=== PATIENT | female | born 1955 | race Caucasian/White ===

== ENCOUNTER 2019-03-19 23:12 | Emergency (ER) | payer MEDICARE ==
[~2019-03-19] VITALS: Ht 162.6 cm; Wt 59.0 kg
[~2019-03-19 23:12] MED LIST: Bactrim Ds Tab1 EACH PO; CEPH500 PO; HYDR1TAB94 PO; Keflex500 MG PO; OMEP20ER PO; PREG50 PO
== END 2019-03-20 00:11 | disposition home or self-care (01) ==
LOC: ER 23:12
DX: M25.542 Pain in joints of left hand (principal); F17.200 Nicotine dependence, unspecified, uncomplicated; Z88.0 Allergy status to penicillin; Z88.8 Allergy status to other drugs, medicaments and biological substances
CPT/HCPCS: 99283

== ENCOUNTER → 2019-05-17 | Outpatient (CLI) | payer MEDICARE | END | disposition home or self-care (01) | LOC: LAB SHORT 19:30 → LAB 19:30 | DX: R30.0 Dysuria (principal); R35.0 Frequency of micturition | CPT/HCPCS: 87086 ==

== ENCOUNTER 2022-07-11 17:38 | Emergency (ER) | payer OTHER ==
[~2022-07-11] VITALS: Ht 162.6 cm; Wt 59.0 kg
== END 2022-07-11 19:45 | disposition home or self-care (01) ==
LOC: ER 17:38
DX: M25.532 Pain in left wrist (principal); S80.212A Abrasion, left knee, initial encounter; S00.81XA Abrasion of other part of head, initial encounter; W17.89XA Other fall from one level to another, initial encounter; Z88.0 Allergy status to penicillin; Z88.8 Allergy status to other drugs, medicaments and biological substances; F17.200 Nicotine dependence, unspecified, uncomplicated
CPT/HCPCS: 73110

== ENCOUNTER 2022-08-06 03:01 | Inpatient (IN) | payer MEDICARE ==
[~2022-08-06] VITALS: Wt 62.0 kg
[2022-08-06 08:21] LABS: BASOPHILS ABSOLUTE AUTO 0.03 K/mm3 (0.00-0.23); BASOPHILS PERCENT AUTO 0 % (0-2); EOSINOPHILS PERCENT AUTO 0 % (0-6); Hematocrit 43.4 % (33.0-51.0); Hemoglobin 14.6 g/dL (11.5-16.0); IMMATURE GRAN ABSOLUTE AUTO 0.09 K/mm3 (0.00-0.10); IMMATURE GRAN PERCENT AUTO 0 % (0-1); LYMPHOCYTES ABSOLUTE AUTO 0.95 K/mm3 (0.84-5.20); LYMPHOCYTES PERCENT AUTO 5 % (21-46); MONOCYTES PERCENT AUTO 11 % (4-13); Mean Corpuscular HGB 27.9 pg (26.0-34.0); Mean Corpuscular HGB Conc 33.6 g/dL (31.5-36.5); Mean Corpuscular Volume 83 fL (80-100); Mean Platelet Volume 9.2 fL (9.1-12.4); NEUTROPHILS ABSOLUTE AUTO 17.25 K/mm3 (1.96-9.15); NEUTROPHILS PERCENT AUTO 84 % (41-73); Platelet Count 487 K/mm3 (150-400); RDW Coefficient Variation 14.1 % (11.7-14.2); RDW Standard Deviation 42.7 fL (35.1-46.3); Red Blood Cell Count 5.23 M/mm3 (3.80-5.20); White Blood Cell Count 20.52 K/mm3 (4.00-11.30)
[2022-08-06 08:43] LABS: Albumin, Blood 3.5 g/dL (3.4-5.0); Albumin/Globulin Ratio 0.6 (0.8-1.8); Bilirubin, Direct 0.2 mg/dL (0.0-0.3); Bilirubin, Indirect 0.6 mg/dL (0.1-0.7); Bilirubin, Total 0.8 mg/dL (0.1-1.0); Bun/Creatinine Ratio 21.3 (12.0-20.0); Calcium, Blood 9.8 mg/dL (8.5-10.1); Creatinine, Blood 0.75 mg/dL (0.40-1.00); Globulin, Blood 5.5 g/dL (2.2-4.0); Magnesium, Blood 1.9 mg/dL (1.6-2.4); Potassium, Blood 3.3 mmol/L (3.5-5.5)
[2022-08-06 09:54] LABS: Influenza A, PCR NEGATIVE (NEGATIVE); Influenza B, PCR NEGATIVE (NEGATIVE); Resp Syncytial Virus, PCR NEGATIVE (NEGATIVE); SARS-Cov-2 (COVID-19) PCR, MMC NEGATIVE (NEGATIVE)
[2022-08-06 14:02] LABS: Source, Urine Straight Cath
[2022-08-06 14:14] LABS: Appearance, Urine Clear (Clear); Bilirubin, Urine Neg (Neg); Blood, Urine 2+ (Neg); Color, Urine Yellow (P-Yellow); Glucose Qualitative, Urine Neg (Neg); Ketones, Urine 1+ (Neg); Leukocyte Esterase, Urine Neg (Neg); Nitrite, Urine Neg (Neg); Protein, Urine Neg (Neg); Specific Gravity, Urine 1.005 (1.003-1.022); Urobilinogen, Urine NORM (Normal)
[2022-08-06 14:27] LABS: Bacteria Few /hpf; Squamous Epithelial Cells Few /hpf (Few); White Blood Cells, Urine 0-2 /hpf (0-5)
--- NOTE | 2022-08-06 18:17 | NUR ---
SHIFT SUMMARY PT ADMITTED FROM THE ED THIS AFTERNOON AROUND 1500. SHE HAS C/O PAIN SINCE ADMITTED AND WAS MEDICATED PER THE EMAR. SHE ALSO C/O NAUSEA AND WAS MEDICATED PER THE EMAR. PT IS AOX4 BUT SOMETIMES DIFFICULT TO GET INFORMATION OUT OF. SHE HAS HAD HER VISIT AT THE BS. SHE IS INDEPENDENT IN THE ROOM. PT IS NPO. WILL REPORT TO ONCOMING NURSE.
--- NOTE | 2022-08-07 04:37 | NUR ---
ASSISTED LIVING CARE MANAGER SUMMARY PT IS ALERT AND ORIENTED COMMUNICATING APPROPRIATELY W STAFF THIS SHIFT. PTHAVING DIIFICULTY W PAIN CONTROL THIS SHIFT DESPITE Q2H MEDICATION PER EMAR SO PROVIDER CONTACTED AND ADDITIONAL PAIN MEDICATION ORDER WAS OBTAINED WHICH DID BRING THE PT SOME RELIEF. PT PLACED ON O2 MONITORING DUE TO HIGH DOSE PAIN MEDICATION ADMINISTRATIONS. O2 SATS >94% ON RM AIR. PT VOIDING SEVERAL TIMES THIS SHIFT BUT DID NOT HAVE ANY BOWEL MOVEMENTS. PT REPORTING NAUSEA THROUGHOUT THE SHIFT BUT HAD NO EMESIS. PT AWAKE MOST OF THE NIGHT DUE TO PAIN BUT IS CURRENTLY RESTING COMFORTABLY IN BED W CALL LIGHT WITHIN REACH. WILL REPORT TO ONCOMING RN.
[2022-08-07 05:20] LABS: Hematocrit 32.1 % (33.0-51.0); Hemoglobin 10.7 g/dL (11.5-16.0); Mean Corpuscular HGB 28.1 pg (26.0-34.0); Mean Corpuscular HGB Conc 33.3 g/dL (31.5-36.5); Mean Corpuscular Volume 84 fL (80-100); Mean Platelet Volume 9.3 fL (9.1-12.4); Platelet Count 298 K/mm3 (150-400); RDW Coefficient Variation 14.8 % (11.7-14.2); RDW Standard Deviation 45.5 fL (35.1-46.3); Red Blood Cell Count 3.81 M/mm3 (3.80-5.20); White Blood Cell Count 14.32 K/mm3 (4.00-11.30)
[2022-08-07 06:01] LABS: Magnesium, Blood 1.6 mg/dL (1.6-2.4)
[2022-08-07 06:08] LABS: Albumin, Blood 2.4 g/dL (3.4-5.0); Albumin/Globulin Ratio 0.6 (0.8-1.8); Bilirubin, Total 0.4 mg/dL (0.1-1.0); Bun/Creatinine Ratio 12.2 (12.0-20.0); Creatinine, Blood 0.82 mg/dL (0.40-1.00); Globulin, Blood 3.7 g/dL (2.2-4.0); Potassium, Blood 3.5 mmol/L (3.5-5.5)
[2022-08-07 06:09] LABS: Total Protein, Blood 6.1 g/dL (6.4-8.2)
[2022-08-07 13:14] LABS: Stool Occult Blood Guaiac 1 Pos (Neg)
[2022-08-07 16:34] LABS: Adenovirus F 40/41 Not Detected (NOT DETECT); Astrovirus Not Detected (NOT DETECT); Campylobacter Sp Not Detected (NOT DETECT); Cryptosporidium Not Detected (NOT DETECT); Cyclospora Cayetanensis Not Detected (NOT DETECT); E. Coli O157 Not Detected (NOT DETECT); Entamoeba Histolytica Not Detected (NOT DETECT); Enteroaggregative E. coli-EAEC Detected (NOT DETECT); Enteropathogenic E. coli-EPEC Not Detected (NOT DETECT); Enterotoxigenic E. coli-ETEC Not Detected (NOT DETECT); Giardia Lamblia Not Detected (NOT DETECT); Norovirus GI/GII Not Detected (NOT DETECT); Plesiomonas Shigelloides Not Detected (NOT DETECT); Rotavirus A Not Detected (NOT DETECT); Salmonella Sp Not Detected (NOT DETECT); Sapovirus Not Detected (NOT DETECT); Shiga Toxin-prod E. coli-STEC Not Detected (NOT DETECT); Shigella/Enteroin E. coli-EIEC Not Detected (NOT DETECT); Vibrio Cholerae Not Detected (NOT DETECT); Vibrio Sp Not Detected (NOT DETECT); Yersinia Enterocolitica Not Detected (NOT DETECT)
[2022-08-07 17:24] LABS: Hematocrit 32.6 % (33.0-51.0); Hemoglobin 10.7 g/dL (11.5-16.0)
--- NOTE | 2022-08-07 17:42 | NUR ---
SHIFT SUMMARY PT AOX4, C/O PAIN AND NAUSEA T/O. MEDICATED PER EMAR. SHE HAD A BOWEL MOVEMENT WHILE IN BED, THE STOOL WAS SENT TO LAB TO BE TESTED FOR CDIFF AND BLOOD. BLOOD CAME BACK POSITIVE AND CDIFF NEGATIVE BUT POSITIVE FOR ECOLI. THE PROVIDER WAS NOTIFIED AND STATED THAT SHE IS ALREADY ON ABX THAT CAN HELP TREAT. SHE IS CURRENTLY SLEEPING AND REMAINS NPO. WILL REPORT TO ONCOMING NURSE.
--- NOTE | 2022-08-08 04:29 | NUR ---
SHIFT SUMMARY PATIENT REPORTED ABDOMINAL PAIN EVERY FOUR HOURS. IV DILAUDID 2 MG GIVEN PER EMAR X THREE. IV ZOFRAN GIVEN FOR NAUSEA X TWO. HOSPITALIST DR ELAINE ORDERED IV REGLAN 10 MG Q6 FOR N/V PRN. AXOX 4 AND INDEPENDENT TO BR. POWERGLIDE JANE INTACT. LR INFUSING AT 150 mL/HR. PIV REMAINS INTACT. IV ABX INFUSED. NPO WITH MOUTH SWABS PROVIDED. PATIENT ABLE TO SLEEP WITH PAIN AND N/V MANAGEMENT. ON CONTINUOUS PULSE OXIMETRY STATING IN THE 90'S. CALL LIGHT IN REACH. BED IN LOWEST POSITION. WILL CONTINUE TO MONITOR UNTIL DAY SHIFT NURSE ASSUMES CARE.
[2022-08-08 04:49] LABS: Hematocrit 31.8 % (33.0-51.0); Hemoglobin 10.5 g/dL (11.5-16.0); Mean Corpuscular HGB 28.2 pg (26.0-34.0); Mean Corpuscular Volume 85 fL (80-100); Mean Platelet Volume 9.2 fL (9.1-12.4); Platelet Count 267 K/mm3 (150-400); RDW Coefficient Variation 14.6 % (11.7-14.2); RDW Standard Deviation 45.5 fL (35.1-46.3); Red Blood Cell Count 3.73 M/mm3 (3.80-5.20); White Blood Cell Count 11.49 K/mm3 (4.00-11.30)
[2022-08-08 05:06] LABS: Bun/Creatinine Ratio 12.7 (12.0-20.0); Calcium, Blood 8.2 mg/dL (8.5-10.1); Creatinine, Blood 0.79 mg/dL (0.40-1.00); Potassium, Blood 3.2 mmol/L (3.5-5.5)
--- NOTE | 2022-08-08 16:13 | NUR ---
SHIFT SUMMARY PATIENT IS ALERT AND ORIENTATED. PATIENT HAS HAD NO ACUTE EVENTS THIS SHIFT. VITAL SIGNS REVIEWED. PATIENT HAS BEEN UPGRADED TO CLEAR LIQUID DIET AND TOLERATING WELL. PATIENT HAS BEEN COMPLAINING OF NAUSEA AND PAIN, MEDICATED PER EMAR. PATIENT WAS PLACED ON 1L O2 NC FOR SOB. PATIENT HAS NOT COMPLAINED OF VOMITTING THIS SHIFT. PATIENT HAS LR CONTINUING TO INFUSE THROUGH POWERGLIDE. BED IN LOCKED AND LOWEST POSITION. CALL LIGHT IN PLACE. WILL MONITOR UNTIL SHIFT CHANGE.
--- NOTE | 2022-08-09 05:07 | NUR ---
SHIFT MOSTLY UNREMARKABLE. PT HAS DILAUDID 1-2MG IV Q 4 FOR PAIN WHICH SHE REQUESTS EVERY 4 HOURS. PAIN NOT COMPLETELY MANAGED ON DILAUDID THERAPY WITH PATIENT COMPLAINING OF PAIN BEFORE NEXT DOSE OF MEDICATION IS DUE. FLUIDS INFUSING WITHOUT DIFFICULTY. 2 LITERS O2 VIA NC. CALL LIGHT LEFT WITHIN REACH.
[2022-08-09 08:47] LABS: Hematocrit 30.6 % (33.0-51.0); Hemoglobin 10.1 g/dL (11.5-16.0)
[2022-08-09 09:08] LABS: Calcium, Blood 8.1 mg/dL (8.5-10.1); Creatinine, Blood 0.75 mg/dL (0.40-1.00); Potassium, Blood 3.5 mmol/L (3.5-5.5)
--- NOTE | 2022-08-09 17:14 | NUR ---
SHIFT SUMMARY PATIENT IS ALERT AND ORIENTED. PATIENT HAS NOT HAD ANY ACUTE EVENTS THIS SHIFT. VITAL SIGNS REVIEWED. PATIENT HAS BEEN REQUIRING Q4 PAIN MEDICATION. PATIENT HAS BEEN MEDICATED FOR NAUSEA PER EMAR. PATIENT HAS NOT COMPLAINED OF SOB THIS SHIFT. PATIENT HAS LR CURRENTLY INFUSING. ABX GIVEN PER EMAR. BED IN LOCKED AND LOWEST POSITION. CALL LIGHT IN PLACE. WILL MONITOR UNTIL SHIFT CHANGE.
--- NOTE | 2022-08-10 05:15 | NUR ---
SHIFT MOSTLY UNREMARKABLE. PATIENT'S PAIN CONTINUES TO BE TREATED PER EMAR, DILAUDID 1-2 MG IV Q 4. PATIENT CONSISTENTLY ASKS FOR PAIN MEDS WITHIN 20 MINUTES OF Q 4 INCREMENTS. DESPITE THIS, PATIENT BELIEVES HER PAIN IS VERY SLOWLY IMPROVING ON DAY SHIFT SHE WAS ABLE TO GO UP TO 6 HOURS BETWEEN PAIN MED REQUESTS. NOTHING ELSE OF NOTE ON SHIFT. CALL LIGHT LEFT WITHIN REACH.
[2022-08-10 05:20] LABS: Hematocrit 31.2 % (33.0-51.0); Hemoglobin 10.4 g/dL (11.5-16.0); Mean Corpuscular HGB 28.3 pg (26.0-34.0); Mean Corpuscular HGB Conc 33.3 g/dL (31.5-36.5); Mean Corpuscular Volume 85 fL (80-100); Mean Platelet Volume 9.8 fL (9.1-12.4); Platelet Count 267 K/mm3 (150-400); RDW Coefficient Variation 14.7 % (11.7-14.2); RDW Standard Deviation 45.8 fL (35.1-46.3); Red Blood Cell Count 3.67 M/mm3 (3.80-5.20); White Blood Cell Count 7.78 K/mm3 (4.00-11.30)
[2022-08-10 05:41] LABS: Creatinine, Blood 0.75 mg/dL (0.40-1.00); Potassium, Blood 3.6 mmol/L (3.5-5.5)
--- NOTE | 2022-08-10 15:45 | NUR ---
SHIFT SUMMARY PATIENT IS ALERT AND ORIENTED. PATIENT HAS BEEN IND THIS SHIFT. PATIENT HAS HAD NO ACUTE EVENTS THIS SHIFT. VITAL SIGNS REVIEWED. PATIENT WENT DOWN FOR ABD CT THIS AFTERNOON. PATIENT HAS BEEN MEDICATED FOR PAIN PER EMAR TWICE THIS SHIFT. PATIENT HAS BEEN MEDICATED PER EMAR FOR NAUSEA. PATIENT HAS NOT COMPLAINED OF VOMITTING OR SOB THIS SHIFT. LR INFUSING ALL SHIFT AND ABX INFUSED WITHOUT INCIDENT. BED IN LOCKED AND LOWEST POSITION. CALL LIGHT IN PLACE. WILL MONITOR UNTIL SHIFT CHANGE.
--- NOTE | 2022-08-11 04:16 | NUR ---
SHIFT MOSTLY UNREMARKABLE. PATIENT PAIN IS ADEQUATELY MANAGED AT THIS TIME ON CURRENT MEDICATION REGIMEN. PATIENT REPORTS GRADUALLY BEING ABLE TO GO LONGER AND LONGER BETWEEN PAIN MEDICATION REQUESTS. THINKS PAIN IS SLOWLY IMPROVING WITH TIME. CALL LIGHT LEFT WITHIN REACH.
--- NOTE | 2022-08-11 17:07 | NUR ---
SHIFT SUMMARY PT A&OX4 AND PLEASANT. STANDBY ASSIST IN ROOM D/T IV POLE. PT ATE VERY LITTLE OF CLD TODAY, STATING THAT IT STILL UPSETS HER STOMACH. PT C/O PAIN AND MEDICATED PER EMAR. WARM BLANKET APPLIED TO ABD AND PT VERBALIZED SOME PAIN RELIEF. PT HAD ONE EPISODE OF NAUSEA IN AFTERNOON AND MEDICATED PER EMAR WITH GOOD EFFICACY. AT BEDSIDE THIS AFTERNOON. BED IN LOWEST POSITION AND CALL LIGHT IN REACH.
--- NOTE | 2022-08-12 04:53 | NUR ---
SHIFT SUMMARY PATIENT IS ALERT AND ORIENTED. PATIENT HAS HAD NO ACUTE EVENTS THIS SHIFT. VITAL SIGNS REVIEWED. PATIENT HAS BEEN MEDICATED FOR PAIN AND NAUSEA PER EMAR. PATIENT HAS NOT COMPLAINED OF SOB OR VOMITTING THIS SHIFT. PATIENT HAS BEEN IND TO BATHROOM WITH HELP OF UNPLUGGING IV POLE. PATIENT IS PLANNING OF HAVING EGD TODAY AND WILL BE NPO AFTER BREAKFAST. PATIENT IS TOLERATING CLEAR LIQUIDS OKAY THIS SHIFT. BED IN LOCKED AND LOWEST POSITION CALL LIGHT IN PLACE. WILL MONITOR UNTIL SHIFT CHANGE.
[2022-08-12 10:55] LABS: Hemoglobin 10.1 g/dL (11.5-16.0); Mean Corpuscular HGB 28.2 pg (26.0-34.0); Mean Corpuscular HGB Conc 32.6 g/dL (31.5-36.5); Mean Corpuscular Volume 87 fL (80-100); Mean Platelet Volume 9.5 fL (9.1-12.4); Platelet Count 329 K/mm3 (150-400); RDW Standard Deviation 47.3 fL (35.1-46.3); Red Blood Cell Count 3.58 M/mm3 (3.80-5.20); White Blood Cell Count 6.33 K/mm3 (4.00-11.30)
[2022-08-12 11:09] LABS: Bun/Creatinine Ratio 4.2 (12.0-20.0); Calcium, Blood 7.8 mg/dL (8.5-10.1); Creatinine, Blood 0.72 mg/dL (0.40-1.00); Potassium, Blood 3.7 mmol/L (3.5-5.5)
--- NOTE | 2022-08-12 18:34 | NUR ---
SHIFT SUMMARY PT A&OX4 AND IN PLEASENT MOOD. AWAITING DAY SURG @ THIS TIME FOR SCOPE. NPO @ THIS TIME. VSS. PAIN MEDICATED PER EMAR. RA. CALL LIGHT W/IN REACH. AMB. IND W/ STEADY GAIT. LR DECREASED TO 75 ML/HR. SPOUSE @ BEDSIDE T/O SHIFT. PT REPORTS DIARHEA, STATES "IT LOOKED VANCE GREENISH".
--- NOTE | 2022-08-12 19:27 | NUR ---
History, Chart, Medications and Allergies reviewed before start of procedure. Patient confirms NPO status and agrees with scheduled surgery. Pre-Op teaching done. Pt verbalizes understanding. PT TO UNIT VIA GURN FROM MEDICAL FLOOR. PT ABLE TO INDEPENDENTLY TRANSFER TO GURN FROM BED.
--- NOTE | 2022-08-12 19:51 | NUR ---
08/12/221950 Madi Avila HISTORY, CHART, MEDICATIONS AND ALLERGIES REVIEWED BEFORE START OF PROCEDURE. PATIENT CONFIRMS NPO STATUS AND AGREES WITH SCHEDULED PROCEDURE. 3-LEAD EKG REVIEWED WITH PHYSICIAN PRIOR TO START OF PROCEDURE. MONITOR INTACT WITH CONTINUOUS PULSE OXIMETRY,CAPNOGRAPHY, 3-LEAD EKG, INTERMITTENT BP. SUPPLEMENTAL O2 TO BE TITRATED THROUGHOUT PROCEDURE TO MAINTAIN O2 SATURATION ABOVE 90%. PATIENT DETERMINED TO BE ASA APPROPRIATE FOR PROPOFOL SEDATION PRIOR TO START OF PROCEDURE BY DR. JIMENEZ. Bite Block Placed. 2 % LIDOCAINE TO BACK OF THROAT IN PRE OP.
--- NOTE | 2022-08-13 07:11 | NUR ---
Shift Summary Pt C/O of adbominal pain, especially after ambulating to the bathroom. One episode of severe pain 04/09 around 0300. Medicated per emar. Pt went for an EGD which was tolerated well. Was changed from NPO to full liquids. Pt had a variety of liquids, stating chicken broth helped calm her stomach. Medicated once with PRN Zofran for nausea. Rcvd IV ABX and LR @ 75. No acute events, VSS, pleasant and cooperative with care.
--- NOTE | 2022-08-13 17:05 | NUR ---
SHIFT SUMMARY PT A&OX4, MOOD UP AND DOWN. PT RECIEVED PHONE CALL ABOUT SKIN CX DX THIS SHIFT AND BECAME TEARFUL. C/O PAIN T/O SHIFT, MEDICATED PER EMAR. AMB W/ STEADY GAIT. VSS. CALL LIGHT W/IN REACH. TOLERATING CL DIET @ THIS TIME-1 C/O NAUSEA, MEDICATED PER EMAR.
--- NOTE | 2022-08-14 05:42 | NUR ---
SHIFT SUMMARY PATIENT ALERT AND ORIENTED. MEDICATED PER EMAR FOR PAIN. NO COMPLAINTS OF SHORTNESS OF BREATH. PATIENT'S POWERGLIDE INFILTRATED AND ATTEMPTS TO INSERT NEW IV ACCESS WERE UNSUCCESSFUL. NOTIFIED DR HERRERA. CALL LIGHT WITHIN REACH. REPORT GIVEN TO ONCOMING RN.
[2022-08-14] MEDS ORDERED: CIPR500 PO (11:35)
[2022-08-14] MEDS ORDERED: VISBIOME 112.51 EACH PO (11:36)
[2022-08-14] MEDS ORDERED: OXAYDO5 M1 PO (11:36)
[2022-08-14] MEDS ORDERED: METR500 (11:36)
[2022-08-14] MEDS ORDERED: PANT20 PO (11:37)
[2022-08-14] MEDS ORDERED: PROM25 (11:37)
--- NOTE | 2022-08-14 13:34 | NUR ---
DISCHARGE PT A&OX4 @ TIME OF DC. PT INSTRUCTED TO INITIATE PCP. MEDS FAXED TO [facility], AND HARD SCRIPT IN HAND. TOLERATING CL DIET. AMB IND.
== END 2022-08-14 13:26 | disposition home or self-care (01) | DRG 871 ==
LOC: ER 03:01 → MEDS 11:24 → ERHOLD 11:24 → MEDS 15:21
PROVIDERS: Internal Medicine; Nurse Practitioner Acute Care; Student in an Organized Health Care Education/Training Program; ADMIT Internal Medicine
PROC: 3E03329 Introduction of Other Anti-infective into Peripheral Vein, Percutaneous Approach (ICD-10-PCS; principal; 2022-08-06)
PROC: 0DB98ZX Excision of Duodenum, Via Natural or Artificial Opening Endoscopic, Diagnostic (ICD-10-PCS; 2022-08-12)
PROC: 0DB68ZX Excision of Stomach, Via Natural or Artificial Opening Endoscopic, Diagnostic (ICD-10-PCS; 2022-08-12)
PROC: 0DB48ZX Excision of Esophagogastric Junction, Via Natural or Artificial Opening Endoscopic, Diagnostic (ICD-10-PCS; 2022-08-12)
DX: A41.51 Sepsis due to Escherichia coli [E. coli] (principal); K29.41 Chronic atrophic gastritis with bleeding; A04.4 Other intestinal Escherichia coli infections; G89.29 Other chronic pain; K30 Functional dyspepsia; M51.9 Unspecified thoracic, thoracolumbar and lumbosacral intervertebral disc disorder; M79.7 Fibromyalgia; F19.10 Other psychoactive substance abuse, uncomplicated; Z20.822 Contact with and (suspected) exposure to COVID-19; F17.210 Nicotine dependence, cigarettes, uncomplicated; E87.6 Hypokalemia; M19.90 Unspecified osteoarthritis, unspecified site; Z59.00 Homelessness unspecified; Z88.0 Allergy status to penicillin; Z88.8 Allergy status to other drugs, medicaments and biological substances; Z90.49 Acquired absence of other specified parts of digestive tract; Z90.710 Acquired absence of both cervix and uterus
CPT/HCPCS: 0241U; 36415; 74177; 80048; 80053; 80076; 81001; 82270; 83605; 83690; 83735; 85014; 85018; 85025; 85027; 87040; 87507; 88305; 88342; 93005; 93010; 94760; 94762; 96365; 96375; 99285-25; A9270; C1751; C9113; J0696; J0744; J1170; J1650; J1885; J2250; J2405; J2550; J2704; J3010; J3480; J7030; J7050; J7120; Q9967

== ENCOUNTER 2023-06-06 09:25 | Emergency (ER) | payer MEDICARE ==
[~2023-06-06] VITALS: Ht 162.6 cm; Wt 52.2 kg
[~2023-06-06 09:25] MED LIST changes: +CIPR500 PO; +METR500; +OXAYDO5 M1 PO; +PANT20 PO; +PROM25; +VISBIOME 112.51 EACH PO
[2023-06-06 09:37] VITALS: BP 132/83
[2023-06-06] MEDS ORDERED: LASIX20 M2 PO (10:34)
[2023-06-06] MEDS ORDERED: POTCHL20ER PO (10:34)
== END 2023-06-06 10:50 | disposition home or self-care (01) ==
LOC: ER 09:25
DX: R60.0 Localized edema (principal); F17.200 Nicotine dependence, unspecified, uncomplicated; Z79.899 Other long term (current) drug therapy
CPT/HCPCS: 99283